=== PATIENT | male | born 1990 | race African-American/Black ===

== ENCOUNTER 2016-09-02 22:43 | Emergency (ER) | payer MEDICAID ==
[~2016-09-02] VITALS: Ht 177.8 cm; Wt 100.1 kg
[2016-09-02 22:47] VITALS: BP 140/86
[2016-09-02] MEDS ORDERED: OXYcodone/APAP 5/325MG TABLET ONE (23:08)
[2016-09-02] MEDS ORDERED: OXYcodone/APAP 5/325MG TABLET PO ONE (23:30)
== END 2016-09-03 00:29 | disposition home or self-care (01) ==
LOC: ED 09-03 00:27
DX: S62.314A Displaced fracture of base of fourth metacarpal bone, right hand, initial encounter for closed fracture (principal); S62.316A Displaced fracture of base of fifth metacarpal bone, right hand, initial encounter for closed fracture; S62.141A Displaced fracture of body of hamate [unciform] bone, right wrist, initial encounter for closed fracture; F17.200 Nicotine dependence, unspecified, uncomplicated; W22.8XXA Striking against or struck by other objects, initial encounter; Y93.89 Activity, other specified; Y92.410 Unspecified street and highway as the place of occurrence of the external cause; Y99.9 Unspecified external cause status
CPT/HCPCS: 29125; 99284

== ENCOUNTER 2020-04-18 14:56 | Emergency (ER) | payer MEDICAID ==
[~2020-04-18] VITALS: Ht 180.3 cm; Wt 129.1 kg
[2020-04-18] MEDS ORDERED: DEXAMETHASONE 4 MG TABLET ONE (15:24)
[2020-04-18 15:30] VITALS: BP 133/86
[2020-04-18] MEDS ORDERED: DEXAMETHASONE 4 MG TABLET PO ONE (15:30)
--- NOTE | 2020-04-18 15:37 | NUR ---
PT MEDICATED PER ORDERS. C/O THROAT PAIN AND DIFFICULTY SWALLOWING AND SLEEPING D/T SWELLING. UNDERSTANDS POC.
--- NOTE | 2020-04-18 16:07 | NUR ---
JOSE ULLOA WAS IN FOR RECHECK.
--- NOTE | 2020-04-18 16:31 | NUR ---
PT VERBALIZED SOME RELIEF AFTER DECADRON. INSTRUCTED TO RETURN TO ED IMMEDIATELY FOR WORSENING THROAT SWELLING OR DIFFICULTY BREATHING. D/C INSTRUCTIONS, MEDS & F/U APPT RV'WD WITH PT, HE VERBALIZES UNDERSTANDING. RX GIVEN X2. BUS PASS PROVIDED TO PT. PT AMBULATED OUT OF ED WITHOUT DIFFICULTY.
== END 2020-04-18 16:34 | disposition home or self-care (01) ==
LOC: ED 15:54
DX: J02.8 Acute pharyngitis due to other specified organisms (principal); B97.89 Other viral agents as the cause of diseases classified elsewhere; F17.200 Nicotine dependence, unspecified, uncomplicated
CPT/HCPCS: 87081; 87147; 87880; 99283